=== PATIENT | female | born 1975 | race Caucasian/White ===

== ENCOUNTER 2019-03-25 12:28 | Emergency (ER) | payer OTHER ==
[2019-03-25] MEDS ORDERED: Diazepam 10 MG/2 ML SYRINGE ONE (13:13)
[2019-03-25] MEDS ORDERED: Ketorolac Tromethamine 30 MG/ML VIAL ONE (13:13)
--- NOTE | 2019-03-25 13:21 | CT ---
CT cervical spine noncontrast HISTORY: Fall. Neck injury. FINDINGS: Vertebral body heights are maintained. Mild, gentle reversal of the normal lordotic curvatu re. Disc space narrowing and osteophytosis most pronounced at the C5-6-7 levels, where posterior disc bulges are also present, resulting in significant central canal stenoses. Prominent multilevel b ilateral foraminal stenoses. No acute fracture or dislocation. Cervicothoracic junction is intact. IMPRESSION: Prominent degenerative changes cervical spine, including significant central canal and fo raminal stenoses. No acute osseous abnormalities are demonstrated.
== END 2019-03-25 14:09 | disposition home or self-care (01) ==
LOC: SCSER 12:28
DX: S13.9XXA Sprain of joints and ligaments of unspecified parts of neck, initial encounter (principal); I49.9 Cardiac arrhythmia, unspecified; G40.909 Epilepsy, unspecified, not intractable, without status epilepticus; G43.909 Migraine, unspecified, not intractable, without status migrainosus; J45.909 Unspecified asthma, uncomplicated; F41.9 Anxiety disorder, unspecified; F31.9 Bipolar disorder, unspecified; F43.10 Post-traumatic stress disorder, unspecified; F17.210 Nicotine dependence, cigarettes, uncomplicated; W06.XXXA Fall from bed, initial encounter
CPT/HCPCS: 72125; 96372; J1885; J3360

== ENCOUNTER 2020-04-17 07:33 | Outpatient (CLI) | payer OTHER ==
--- NOTE | 2020-04-17 09:32 | MRI ---
MRI Cervical spine without contrast: HISTORY: Cervical radiculopathy. Patient complains of pain, numbness, and tingling which radiates down each ar m and into the fingers. Left greater than right. COMPARISON: None FINDINGS: The craniocervical junction is unremarkable. No significant cord signal abnormality. Paravertebral soft tissues have a normal appearance and normal signal intensity. C1-2:No significant stenosis. C2-3: There is no disc bulge or disc herniation. The central spinal canal and neural foramina are pat ent. C3-4: Mild disc osteophyte complex with uncinate process hypertrophy. There is mild effacement of the ventral subarachnoid space. Mild right and moderate left-sided neural foraminal narrowing are present. C4-5: Mild disc osteophyte complex which narrows the ventral subarachnoid space. Right neural foramen is patent, but there is moderate left-sided neural foraminal narrowing. C5-6: Loss of intervertebral disc height. Broad-based disc osteophyte complex is present. This narrow s the ventral subarachnoid space with slight flattening the anterior aspect of the spinal cord. Moderate to severe bilateral neural foraminal narrowing is present. C6-7: Loss of intervertebral disc height. Broad-based disc osteophyte complex is present. This narrow s the ventral subarachnoid space with slight flattening of the anterior aspect of the spinal cord. Moderate to severe right and severe left-sided neural foraminal narrowing are present. C7-T1: There is no disc bulge or disc herniation. The central spinal canal and neural foramina are pa tent. IMPRESSION: Multilevel degenerative changes in the cervical spine with moderate and severe degrees of neural fora titus narrowing seen at multiple levels.
--- NOTE | 2020-04-17 09:35 | MRI ---
MRI of thelumbar spine: 04/17/2020 COMPARISON:None available HISTORY:Lumbar radiculopathy TECHNIQUE: Multiplanar multisequence MR imaging of thelumbar spine without contrast Findings:The sagittal STIR imaging demonstrates no focal area of osseous marrow edema. On the basis of 5 lumbar type vertebral bodies, the conus medullaris terminates at the L1 level. T12-L1: Unremarkable L1-2: Unremarkable L2-3: There is disc space narrowing with anterior osteophyte formation and minimal disc bulge. No sig nificant central canal or neural foraminal stenosis. L3-4: There is disc desiccation. There is an annular tear in the foraminal region on the left. There is mild bilateral facet hypertrophy. No significant central canal or neural foraminal stenosis. L4-5: There is disc space narrowing with disc desiccation and disc bulge. There is a superimposed dis c protrusion in the right paracentral/right foraminal region. Mild bilateral facet hypertrophy is present. There is mild/moderate right lateral recess stenosis and right neural foraminal stenosis. Di sc material abuts the right L3 nerve in the foraminal region. Mild left neural foraminal stenosis. L5-S1: There is disc space narrowing with disc desiccation. There is a mild degree of bilateral facet hypertrophy. Mild left neural foraminal stenosis. No significant central canal or right neural foraminal stenosis. The imaged retroperitoneal structures demonstrate nonvisualization of the left kidney. There is a 1.8 cm T2 hyperintensity in the right hemipelvis suggesting a small ovarian cyst. IMPRESSION:Lumbar spine degenerative changes, most prominent on the right at the L4-5 level. Nonvisualized left kidney which may be on the basis of surgical or congenital absence.
--- NOTE | 2020-04-17 10:03 | MRI ---
MRI THORACIC SPINE WITHOUT CONTRAST: Date: 04/17/2020 INDICATION: Thoracic pain. FINDINGS: Thoracic vertebra maintain normal height and alignment. Thoracic disc spaces are preserved. The thora cic vertebral body signal is normal. No edema. Brim Stitcher image, which includes the cervical spine, shows evidence of disc protrusion producing cord impi ngement at C5-6 and C6-7. See separate MRI cervical spine. There is a mild disc bulge centrally and slightly to the left at the T7-T8 level which flattens the a nterior thecal sac and mildly effaces the anterior subarachnoid space. No significant cord impingemen t. Hypertrophic change at the right facet joint at the T10-T11 level produces compression of the thecal sac posteriorly and laterally on the right. No significant cord impingement. No other significant disc bulge or protrusion. The thoracic cord signal is normal. IMPRESSION: 1. Disc bulge centrally and to the left at the T7-T8 level as described above. 2. Hypertrophic change posteriorly on the right at the T10-T11 level as described above. POS: [facility]
== END 2020-04-17 07:34 | disposition home or self-care (01) ==
LOC: TBSIIMAG 07:33
PROVIDERS: ATTEND Neurological Surgery
DX: M47.22 Other spondylosis with radiculopathy, cervical region (principal); M54.6 Pain in thoracic spine; M51.84 Other intervertebral disc disorders, thoracic region; M47.26 Other spondylosis with radiculopathy, lumbar region; M48.02 Spinal stenosis, cervical region
CPT/HCPCS: 72141; 72146; 72148

== ENCOUNTER 2020-07-22 06:51 | Outpatient (CLI) | payer OTHER ==
[2020-07-22 20:51] LABS: SARS-CoV-2 PCR by NAA Not Detected (NotDetected)
== END 2020-07-22 06:52 | disposition home or self-care (01) ==
LOC: LABBT 06:51
PROVIDERS: ATTEND Neurological Surgery
DX: Z01.812 Encounter for preprocedural laboratory examination (principal); Z20.822 Contact with and (suspected) exposure to COVID-19; M54.16 Radiculopathy, lumbar region
CPT/HCPCS: 87635; U0003; U0005

== ENCOUNTER 2020-07-25 05:44 | Day surgery (SDC) | payer OTHER ==
[2020-07-23 10:29] VITALS: BMI 29.2
[2020-07-25] MEDS ORDERED: Bupivacaine PF 0.5% 30 ML VIAL ONE (06:36)
[2020-07-25] MEDS ORDERED: EPINEPHrine 1 MG/ML AMP ONE (06:36)
[2020-07-25] MEDS ORDERED: Thrombin 5000 UNITS/5 ML VIAL ONE (06:36)
[2020-07-25] MEDS ORDERED: Fentanyl 250 MCG/5 ML VIAL ONE (06:50)
[2020-07-25] MEDS ORDERED: Ketamine 50 MG/ML (10ML VIAL) ONE (06:50)
[2020-07-25] MEDS ORDERED: Midazolam HCl 2 mg/2 ml Vial ONE ×2 (06:50→06:55)
[2020-07-25] MEDS ORDERED: Clindamycin/D5W 900 mg/50 ml Premix Bag ONE (06:55)
[2020-07-25] MEDS ORDERED: Levofloxacin 500 mg/D5W 100 ml Premix Bag ONE (06:55)
[2020-07-25] MEDS ORDERED: Fentanyl 100 MCG/2 ML VIAL ONE (08:29)
[2020-07-25] MEDS ORDERED: PROPOFOL 200 MG/20 ML VIAL ONE (08:53)
[2020-07-25] MEDS ORDERED: Ondansetron PF 4 MG/2 ML Vial ONE (08:53)
[2020-07-25] MEDS ORDERED: Glycopyrrolate 0.2 MG/ML 5 ML SYRINGE ONE (08:53)
[2020-07-25] MEDS ORDERED: diphenhydrAMINE 50 MG/ML VIAL ONE (08:53)
[2020-07-25] MEDS ORDERED: Rocuronium Bromide 10 MG/ML (10ML VIAL) ONE (08:53)
[2020-07-25] MEDS ORDERED: Dexamethasone 20 MG/5 ML VIAL ONE (08:53)
[2020-07-25] MEDS ORDERED: HYDROcodone/Acetaminophen 5/325 mg Tablet ONE (10:18)
== END 2020-07-25 10:45 | disposition home or self-care (01) ==
LOC: SDC 05:44
PROVIDERS: ATTEND Neurological Surgery
PROC: 01NB0ZZ Release Lumbar Nerve, Open Approach (ICD-10-PCS; principal; 2020-07-25)
DX: M54.16 Radiculopathy, lumbar region (principal); M48.061 Spinal stenosis, lumbar region without neurogenic claudication; K59.00 Constipation, unspecified; J45.909 Unspecified asthma, uncomplicated; F41.9 Anxiety disorder, unspecified; I25.10 Atherosclerotic heart disease of native coronary artery without angina pectoris; G40.909 Epilepsy, unspecified, not intractable, without status epilepticus; F32.9 Major depressive disorder, single episode, unspecified; Z79.899 Other long term (current) drug therapy; Z88.0 Allergy status to penicillin; Z88.2 Allergy status to sulfonamides; Z88.5 Allergy status to narcotic agent; Z91.018 Allergy to other foods
CPT/HCPCS: 76000; J0171; J1100; J1200; J1956; J2250; J2405; J2704; J3010; J3490; S0020

== ENCOUNTER 2020-09-16 07:54 | Outpatient (CLI) | payer OTHER ==
[2020-09-16 18:59] LABS: SARS-CoV-2 PCR by NAA Not Detected (NotDetected)
== END 2020-09-16 07:55 | disposition home or self-care (01) ==
LOC: LABBT 07:54
PROVIDERS: ATTEND Neurological Surgery
DX: Z01.812 Encounter for preprocedural laboratory examination (principal); M54.12 Radiculopathy, cervical region; Z20.822 Contact with and (suspected) exposure to COVID-19
CPT/HCPCS: 87635; U0003; U0005

== ENCOUNTER 2020-09-19 05:40 | Day surgery (SDC) | payer OTHER ==
[2020-09-19] MEDS ORDERED: Thrombin 5000 UNITS/5 ML VIAL ONE (06:12)
[2020-09-19] MEDS ORDERED: Fentanyl 250 MCG/5 ML VIAL ONE (06:38)
[2020-09-19] MEDS ORDERED: Midazolam HCl 2 mg/2 ml Vial ONE (06:44)
[2020-09-19] MEDS ORDERED: Levofloxacin 500 mg/D5W 100 ml Premix Bag ONE (06:53)
[2020-09-19] MEDS ORDERED: Clindamycin/D5W 900 mg/50 ml Premix Bag ONE (06:53)
[2020-09-19] MEDS ORDERED: Dexmedetomidine 200 MCG/2 ML VIAL ONE (06:59)
[2020-09-19] MEDS ORDERED: Rocuronium Bromide 10 MG/ML (10ML VIAL) ONE (07:10)
[2020-09-19] MEDS ORDERED: Dexamethasone 20 MG/5 ML VIAL ONE (07:10)
[2020-09-19] MEDS ORDERED: Ondansetron PF 4 MG/2 ML Vial ONE (07:10)
[2020-09-19] MEDS ORDERED: PROPOFOL 200 MG/20 ML VIAL ONE (07:10)
[2020-09-19] MEDS ORDERED: Lidocaine 1% PF 5 ML VIAL ONE (07:10)
[2020-09-19] MEDS ORDERED: Glycopyrrolate 0.2 MG/ML 5 ML SYRINGE ONE (07:10)
[2020-09-19] MEDS ORDERED: Fentanyl 100 MCG/2 ML VIAL ONE (09:32)
[2020-09-19] MEDS ORDERED: Promethazine HCl 25 MG/ML VIAL ONE (10:42)
[2020-09-19] MEDS ORDERED: HYDROcodone/Acetaminophen 5/325 mg Tablet ONE (11:30)
== END 2020-09-19 12:45 | disposition home or self-care (01) ==
LOC: SDC 05:40
PROVIDERS: ATTEND Neurological Surgery
PROC: 0RG20A0 Fusion of 2 or more Cervical Vertebral Joints with Interbody Fusion Device, Anterior Approach, Anterior Column, Open Approach (ICD-10-PCS; principal; 2020-09-19)
PROC: 0RT30ZZ Resection of Cervical Vertebral Disc, Open Approach (ICD-10-PCS; principal; 2020-09-19)
DX: M54.12 Radiculopathy, cervical region (principal); Z79.899 Other long term (current) drug therapy; Z88.0 Allergy status to penicillin; Z88.2 Allergy status to sulfonamides; Z88.5 Allergy status to narcotic agent; Z91.018 Allergy to other foods
CPT/HCPCS: 76000; C1713; C1776; J1100; J1956; J2250; J2405; J2550; J2704; J3010; J3490

== ENCOUNTER 2023-07-28 11:18 | Outpatient (CLI) | payer OTHER | END 2023-07-28 11:19 | disposition home or self-care (01) | LOC: BICMAMMO 11:18 | PROVIDERS: ATTEND Family Medicine | DX: Z12.31 Encounter for screening mammogram for malignant neoplasm of breast (principal); N64.89 Other specified disorders of breast; Z85.41 Personal history of malignant neoplasm of cervix uteri | CPT/HCPCS: 77067 ==

== ENCOUNTER 2023-08-01 13:41 | Outpatient (CLI) | payer OTHER | END 2023-08-01 13:42 | disposition home or self-care (01) | LOC: BICMAMMO 13:41 | PROVIDERS: ATTEND Family Medicine | DX: N64.89 Other specified disorders of breast (principal) | CPT/HCPCS: G0279 ==

== ENCOUNTER 2024-02-15 00:33 | Emergency (ER) | payer OTHER ==
[2024-02-15] MEDS ORDERED: Midazolam HCl 5 mg/ml Vial ONE (01:39)
[2024-02-15 02:52] LABS: %Basophils 0.6 % (0.0-1.0); %Eosinophils 1.1 % (0.0-10.0); %Lymphocytes 14.5 % (21.0-51.0); %Monocytes 6.7 % (0.0-10.0); %Neutrophils 76.7 % (42.0-75.0); Hematocrit 41.4 % (36.0-47.0); Hemoglobin 13.9 g/dL (12.0-16.0); Mean Corpuscular HGB CONC 33.6 g/dL (32.0-36.0); Mean Corpuscular Hemoglobin 32.6 pg (27.0-31.0); Mean Platelet Volume 10.1 fL (7.4-10.4); Platelet Count 342 10x3/uL (130-400); RBC Distribution Width 12.2 % (11.5-14.5); Red Blood Cell (RBC) Count 4.27 mill/uL (4.20-5.40)
[2024-02-15 03:09] LABS: Magnesium 1.7 mg/dL (1.6-2.6)
[2024-02-15 03:10] LABS: ALT (SGPT) 15 U/L (8-55); AST (SGOT) 27 U/L (5-34); Acetaminophen Less than 10 mcg/mL (Less than 10); Albumin 3.9 g/dL (3.5-5.0); Alcohol Less than 10.0 mg/dL (Less than 10); Alkaline Phosphatase 95 U/L (40-110); Anion Gap 18 mmol/L (10-20); BUN (Urea Nitrogen) 9 mg/dL (7.0-18.7); Bilirubin, Total 0.7 mg/dL (0.2-1.2); Calc. Creatinine Clearance 0 mL/min (70-130); Calcium 9.5 mg/dL (7.8-10.44); Carbon Dioxide 18 mmol/L (22-29); Chloride 108 mmol/L (98-107); Estimated GFR 49; Globulin 3.4 g/dL (2.4-3.5); Glucose 111 mg/dL (70-105); Potassium 3.5 mmol/L (3.5-5.1); Protein, Total 7.3 g/dL (6.0-8.3); Salicylate Less than 8.0 mg/dL (Less than 8.0); Sodium 140 mmol/L (136-145)
[2024-02-15 03:11] LABS: BHCG - Serum Negative (NEGATIVE); Pregs Control Background? CLEAR/WHITE (CLR/WHITE); Pregs Control Bar Appear? YES (CONTROL BAR)
[2024-02-15] MEDS ORDERED: Lorazepam 2 MG/ML VIAL ONE ×3 (04:06→05:45)
[2024-02-15 05:38] LABS: Bacteria/HPF 4+ HPF (None Seen); Bilirubin Negative (Negative); Blood, Urine Negative (Negative); CAUTI Indications for Culture Alt mental st,lethar; Glucose, Urine (Dipstick) Normal (Negative); Ketone, Urine Negative (Negative); Leukocyte Negative Leu/uL (Negative); Nitrite Negative (Negative); Protein, Urine (Dipstick) 10 mg/dL (Neg-Trace); RBC/HPF 0-3 HPF (0-3); Specific Gravity, Urine 1.011 (1.002-1.036); Squamous Epithelial 0-3 HPF (0-3); Urobilinogen Normal mg/dL (Less than 2); WBC/HPF 0-3 HPF (0-3)
[2024-02-15 05:39] LABS: Clarity Hazy (Clear)
[2024-02-15 05:40] LABS: Urine Culture Reflex No No
[2024-02-15 05:45] LABS: Amphetamine Not Detected (NotDetected); Barbiturates Screen Not Detected (NotDetected); Benzodiazepine Screen Detected (NotDetected); Cocaine Metabolite Screen Not Detected (NotDetected); Methadone Not Detected (NotDetected); Methamphetamine Not Detected (NotDetected); Opiate Screen Not Detected (NotDetected); Oxycodone Screen Not Detected (NotDetected); Phencyclidine (PCP) Not Detected (NotDetected); THC/Cannabinoid Screen Detected (NotDetected); Tricyclic Screen Not Detected (NotDetected)
== END 2024-02-15 15:52 ==
LOC: ERS 00:33 → EEVIPCON 00:33 → ERS 15:52
DX: R00.0 Tachycardia, unspecified (principal); T42.4X5A Adverse effect of benzodiazepines, initial encounter; R45.851 Suicidal ideations; F17.210 Nicotine dependence, cigarettes, uncomplicated
CPT/HCPCS: 80053; 80306; 80307; 81001; 83735; 84443; 84703; 85025; 93005; 96372; 96374; 96376; J2060; J2250